=== PATIENT | female | born 1995 | race Two or more races ===

== ENCOUNTER 2021-03-24 04:31 | Inpatient (IN) | payer OTHER ==
[~2021-03-24] VITALS: Ht 160 cm; Wt 68.0 kg
[2021-03-24] MEDS ORDERED: PRENATAL TABLE1 EAC3 PO (06:58)
== END 2021-03-26 14:26 | disposition home or self-care (01) | DRG 807 ==
LOC: OBS/DEL 04:31 → LDR 06:48 → SURG-SUITE 06:48 → OBS/DEL 06:48 → SURG-SUITE 14:24
PROVIDERS: ADMIT Specialist; ATTEND Specialist
PROC: 10E0XZZ Delivery of Products of Conception, External Approach (ICD-10-PCS; principal; 2021-03-24)
PROC: 0W8NXZZ Division of Female Perineum, External Approach (ICD-10-PCS; 2021-03-24)
PROC: 4A1HXFZ Monitoring of Products of Conception, Cardiac Rhythm, External Approach (ICD-10-PCS; 2021-03-24)
DX: O80 Encounter for full-term uncomplicated delivery (principal); Z37.0 Single live birth; Z3A.39 39 weeks gestation of pregnancy; Z20.822 Contact with and (suspected) exposure to COVID-19